=== PATIENT | female | born 1995 | race Caucasian/White ===

== ENCOUNTER 2018-05-31 17:06 | Inpatient (IN) ==
[~2018-05-31 17:06] MED LIST: Diphtheria/Tetanus/Pertussis Vaccine Inj 0.5 ML Syringe IM ONE; Measles/Mumps/Rubella Vaccine Inj 0.5 ML Vial SQ ONE
[2018-05-31] MEDS ORDERED: fentaNYL Citrate Inj 100 MCG/2 ML Ampul IV.PUSH PRN ×2 (17:52)
[2018-05-31] MEDS ORDERED: Sod Chloride 0.9% Inj 1,000 ML IV.CONT PRN (17:52)
[2018-05-31] MEDS ORDERED: Sodium Chlor 0.9% Inj 500 ML IV.SIG PRN (17:52)
[2018-05-31] MEDS ORDERED: Oxytocin 30 Units/500ml Premix 30 UNITS/500 ML BAG IV.SIG ONE (17:52)
[2018-05-31] MEDS ORDERED: Oxytocin 30 Units/500ml Premix 30 UNITS/500 ML BAG IV.SIG PRN (17:52)
[2018-05-31] MEDS ORDERED: Naloxone Inj 0.4 MG/ML Vial IV.PUSH PRN ×2 (17:52→21:56)
[2018-05-31] MEDS ORDERED: Citric Acid/Sodium Citrate Liq 30 ML UDC PO SCH (18:00)
[2018-05-31 18:04] LABS: Baso % (Auto) 0.1 % (0.0-2.0); Eos % (Auto) 0.3 % (0.0-4.0); Hematocrit 29.2 % (35.0-46.0); Hemoglobin 10.5 gm/dL (11.6-15.3); Lymph # (Auto) 1.8 th/mm3 (1.0-4.8); Lymph % (Auto) 19.3 % (9.0-44.0); Mean Corpuscular Hemoglobin 33.2 pg (27.0-34.0); Mean Corpuscular Volume 92.3 fL (80.0-100.0); Mean Platelet Volume 8.2 fL (7.0-11.0); Mono % (Auto) 10.5 % (0.0-8.0); Neut # (Auto) 6.4 th/mm3 (1.8-7.7); Neut % (Auto) 69.8 % (16.0-70.0); Platelet Count 209 th/mm3 (150-450); Red Blood Count 3.17 mil/mm3 (4.00-5.30); White Blood Count 9.1 th/mm3 (4.0-11.0)
[2018-05-31 18:08] LABS: Bilirubin,Urine Negative (Negative); Clarity,Urine Clear (Clear); Color,Urine Yellow (Yellw/Straw); Glucose,Urine (UA) 50 mg/dL (Negative); Leukocyte Esterase,Urine Negative (Negative); Mucus,Urine Few /lpf (Occasional); Nitrite,Urine Negative (Negative); Specific Gravity,Urine 1.027 (1.002-1.035); Squamous Epithelial Cell,Urine 1 /hpf (0-5); Urobilinogen,Urine 4 or Greater mg/dL (Less than 2)
[2018-05-31 18:23] LABS: Amphetamine Urine With Conf Neg (Neg); Benzodiazepine Urine With Conf Neg (Neg)
[2018-05-31 18:44] LABS: Platelet Estimate Normal (Normal); Platelet Morphology Normal (Normal)
[2018-05-31] MEDS ORDERED: fentaNYL 2MCG-Bupiv 0.125% Epi 150 ML EPIDURAL ONE (20:25)
[2018-05-31] MEDS ORDERED: Lidocaine PF 1% Inj 5 ML Vial ONE (20:52)
[2018-05-31] MEDS ORDERED: Bupivacaine PF 0.25% Inj 10 ML Vial ONE (20:52)
[2018-05-31] MEDS ORDERED: Vancomycin Inj 1,000 MG in Sodium Chlor 0.9% Inj 250 ML IV.SIG SCH (21:00)
[2018-05-31] MEDS ORDERED: Sodium Chloride 0.9% 2 ML Flush PRN IV.FLUSH (21:01)
[2018-05-31] MEDS ORDERED: fentaNYL Citrate Inj 100 MCG/2 ML Ampul EPIDURAL ONE (21:38)
[2018-05-31] MEDS ORDERED: fentaNYL 2MCG-Bupiv 0.125% Epi 150 ML EPIDURAL PRN (21:38)
[2018-05-31] MEDS ORDERED: Bisacodyl 10 MG Supp RECTAL PRN (21:56)
[2018-05-31] MEDS ORDERED: Zolpidem Tartrate 5 MG Tablet PO PRN (21:56)
[2018-05-31] MEDS ORDERED: Oxytocin 30 Units/500ml Premix 30 UNITS/500 ML BAG IV.CONT PRN (21:56)
[2018-05-31] MEDS ORDERED: Benzocaine 20% Top Spray 60 ML Can TOPICAL PRN (21:56)
[2018-05-31] MEDS ORDERED: Witch Hazel 50%/Glyderin 12.5% 40 Pad Jar RECTAL PRN (21:56)
--- NOTE | 2018-05-31 22:03 | P.OP ---
Surgeon: Jose Roberto Madrid MD Operation and Findings: Preoperative diagnosis: 1. Intrauterine at 38 weeks 0 days 2. growth restriction 3. Asthma 4. GBS positive Postop diagnosis 1. Same as above status post vaginal delivery Procedure 1. Term spontaneous vaginal delivery Surgeon Dr. Jose Roberto Madrid [employer]: [employer] labor and delivery staff Findings: 1. Viable male at 2149, Apgars 9 and 9, weight 2920g. Loose nuchal cord reduced after delivery 2. Intact placenta with three-vessel cord at 2152 3. Intact perineum vagina and cervix Anesthesia: Epidural Specimen: Placenta to disposal Estimated blood loss: 300 cc Fluid replacement: Lactated Ringer's and Pitocin Urine output: None recorded DVT prophylaxis: None required Antibiotics: Vancomycin for GBS prophylaxis Counts: correct x2 Time out done: yes Disposition: Stable to Indications: Patient is a 22-year-old 001 who presented as an induction of labor secondary to a new finding of growth restriction, her cervix was favorable, she was artificially ruptured, during her labor process a rapid GBS returned positive, vancomycin was ordered and started without adequate coverage , the patient progressed to complete with reassuring heart tones without further augmentation. I was called to the room when she was complete. Description of procedure: The patient began pushing after the bed was broken down, the head upon was allowed to restitute naturally for delivery with a supported perineum, with gentle downward guidance the anterior shoulder was delivered followed by gentle upper guidance for the posterior shoulder, the torso and lower extremities were delivered with ease and with continued perineal support. The had spontaneous cry and was placed on mom's abdomen for skin to skin contact, we allowed delayed cord clamping. After the cord was clamped and cut, cord blood was obtained. Pitocin was bolused and with fundal massage the placenta was delivered, there is minimal uterine bleeding and uterus was firm. The perineum, vagina and cervix were inspected and found to be intact. The patient tolerated the procedure well and was left in the birthing suite with her .
[2018-06-01] MEDS: Acetaminophen 325 MG Tablet PO PRN ×3 (05:49→22:36)
[2018-06-01] MEDS: Senna/Docusate Sodium 8.6/50 MG Tablet PO SCH (09:00)
--- NOTE | 2018-06-01 10:52 | P.PNOB ---
Subjective Post day: 1 Interval history: Patient doing well, vaginal bleeding less than menses, does have a headache that is worse when she sits up and resolves when she lays flat. Drank some coffee this morning without improvement. Objective Vital Signs/I&O: Vital Signs 05/31/18 17:59 05/31/18 20:30 05/31/18 20:58 Temperature 99.1 F 98.7 F Pulse Rate 86 80 Respiratory Rate 16 18 Blood Pressure 115/64 124/72 05/31/18 21:03 05/31/18 21:04 05/31/18 21:06 Temperature Pulse Rate 79 94 H Respiratory Rate 20 Blood Pressure 123/86 124/85 05/31/18 21:10 05/31/18 21:20 05/31/18 21:22 Temperature Pulse Rate 82 89 102 H Respiratory Rate 20 Blood Pressure 119/63 114/66 05/31/18 21:25 05/31/18 22:05 05/31/18 22:17 Temperature Pulse Rate 122 H Respiratory Rate Blood Pressure 88/58 L 111/59 L 125/72 05/31/18 22:20 05/31/18 22:31 05/31/18 22:40 Temperature 98.9 F Pulse Rate 82 Respiratory Rate 20 18 Blood Pressure 100/41 L 05/31/18 22:45 05/31/18 23:01 05/31/18 23:25 Temperature Pulse Rate 91 H Respiratory Rate 18 Blood Pressure 119/69 106/49 L 05/31/18 23:31 06/01/18 07:30 Temperature 97.9 F 98.0 F Pulse Rate 76 86 Respiratory Rate 18 20 Blood Pressure 113/60 100/63 Intake & Output 05/31/18 06/01/18 06/01/18 18:59 06:59 18:59 Weight 65.317 kg Other: Weight On Admission 65.317 kg Result Diagrams: 05/31/18 17:35 Objective Remarks: GENERAL: Well-nourished, well-developed patient. CARDIOVASCULAR: Regular rate and rhythm without murmurs, gallops, or rubs. RESPIRATORY: Breath sounds equal bilaterally. No accessory muscle use. ABDOMEN/GI: Abdomen soft, non-tender. Fundus: Firm, non-tender at umbilicus. GENITOURINARY: Light to moderate bleeding. EXTREMITIES: No cyanosis or edema, non-tender, without signs of DVT. Medications and IVs: Active Medications Acetaminophen (Tylenol) 650 mg PO Q4H PRN PRN Reason: PAIN SCALE 1 TO 2 Last Admin: 06/01/18 05:49 Dose: 650 mg Al Hydroxide/Mg Hydroxide (Milk Of Magnesia Liq) 30 ml PO Q12H PRN PRN Reason: Mild Constipation Benzocaine (Americaine 20% Top [place]) 1 spray TOPICAL Q4H PRN PRN Reason: For Perineum Discomfort Bisacodyl (Dulcolax Supp) 10 mg RECTAL DAILY PRN PRN Reason: SEVERE CONSITIPATION Oxytocin (Pitocin 30 Units/Ns 500 Ml Premix) 30 units in 500 mls @ 100 mls/hr IV.CONT UNSCH PRN PRN Reason: Heavy bleeding Ibuprofen (Motrin) 800 mg PO Q8H PRN PRN Reason: For Cramping Last Admin: 05/31/18 23:36 Dose: 800 mg Lactulose (Lactulose Liq) 30 ml PO DAILY PRN PRN Reason: SEVERE CONSITIPATION Naloxone HCl (Narcan Inj) 0.1 mg IV.PUSH Q2M PRN PRN Reason: for opiate reversal Ondansetron HCl (Zofran Odt) 4 mg PO Q6H PRN PRN Reason: NAUSEA OR VOMITING Senna/Docusate Sodium (Anayeli-Colace) 1 tab PO BID LENCHO Sennosides (Senokot) 17.2 mg PO Q12H PRN PRN Reason: Moderate Constipation Sodium Chloride (Ns Flush) 2 ml IV.FLUSH PRN PRN PRN Reason: FLUSH AFTER USING IV ACCESS Sodium Chloride (Ns Flush) 2 ml IV.FLUSH BID LENCHO Sodium Chloride (Ns Flush) 2 ml IV.FLUSH PRN PRN PRN Reason: FLUSH AFTER USING IV ACCESS Witch Anita/Glycerin (Tucks Pads) 1 applicatio RECTAL QID PRN PRN Reason: HEMORRHOIDS Zolpidem Tartrate (Ambien) 5 mg PO HS PRN PRN Reason: SLEEP Assessment and Plan - Plan 22-year-old status post at 38 weeks and 0 days, induction of labor for growth restriction. 1. day #1: Doing well, vital signs stable, anticipate discharge home in the next 24 hours, has symptoms consistent with a spinal headache, encouraged continued caffeine use and will bolus a liter of fluid, anesthesia is aware and may Place blood patch if no improvement. -Male , desires circumcision, did not pay, discussed that she will need to pay and can be done in the office at her follow-up. 2. Asthma: Controlled without medication.
[2018-06-01 20:30] VITALS: RESP 18
[2018-06-02] MEDS: Senna/Docusate Sodium 8.6/50 MG Tablet PO SCH ×2 (04:29→09:00)
[2018-06-02] MEDS: Acetaminophen 325 MG Tablet PO PRN ×3 (05:10→16:57)
[2018-06-02 09:03] VITALS: BP 106/62; PULSE 73; TEMP 98.3
--- NOTE | 2018-06-02 10:10 | P.PNOB ---
Subjective Post day: 2 Interval history: no changes from yesterday, ready for d/c home Objective Vital Signs/I&O: Vital Signs 06/01/18 20:00 06/02/18 08:00 Temperature 97.8 F 98.3 F Pulse Rate 84 73 Respiratory Rate 18 18 Blood Pressure 104/64 106/62 Result Diagrams: 05/31/18 17:35 Objective Remarks: GENERAL: Well-nourished, well-developed patient. CARDIOVASCULAR: Regular rate and rhythm without murmurs, gallops, or rubs. RESPIRATORY: Breath sounds equal bilaterally. No accessory muscle use. ABDOMEN/GI: Abdomen soft, non-tender. Fundus: Firm, non-tender at umbilicus. GENITOURINARY: Light to moderate bleeding. EXTREMITIES: No cyanosis or edema, non-tender, without signs of DVT. Medications and IVs: Active Medications Acetaminophen (Tylenol) 650 mg PO Q4H PRN PRN Reason: PAIN SCALE 1 TO 2 Last Admin: 06/02/18 09:26 Dose: 650 mg Al Hydroxide/Mg Hydroxide (Milk Of Magnesia Liq) 30 ml PO Q12H PRN PRN Reason: Mild Constipation Benzocaine (Americaine 20% Top [place]) 1 spray TOPICAL Q4H PRN PRN Reason: For Perineum Discomfort Bisacodyl (Dulcolax Supp) 10 mg RECTAL DAILY PRN PRN Reason: SEVERE CONSITIPATION Oxytocin (Pitocin 30 Units/Ns 500 Ml Premix) 30 units in 500 mls @ 100 mls/hr IV.CONT UNSCH PRN PRN Reason: Heavy bleeding Ibuprofen (Motrin) 800 mg PO Q8H PRN PRN Reason: For Cramping Last Admin: 06/02/18 09:25 Dose: 800 mg Lactulose (Lactulose Liq) 30 ml PO DAILY PRN PRN Reason: SEVERE CONSITIPATION Naloxone HCl (Narcan Inj) 0.1 mg IV.PUSH Q2M PRN PRN Reason: for opiate reversal Ondansetron HCl (Zofran Odt) 4 mg PO Q6H PRN PRN Reason: NAUSEA OR VOMITING Senna/Docusate Sodium (Anayeli-Colace) 1 tab PO BID LENCHO Last Admin: 06/02/18 04:29 Dose: Not Given Sennosides (Senokot) 17.2 mg PO Q12H PRN PRN Reason: Moderate Constipation Sodium Chloride (Ns Flush) 2 ml IV.FLUSH PRN PRN PRN Reason: FLUSH AFTER USING IV ACCESS Sodium Chloride (Ns Flush) 2 ml IV.FLUSH BID LENCHO Last Admin: 06/02/18 04:29 Dose: Not Given Sodium Chloride (Ns Flush) 2 ml IV.FLUSH PRN PRN PRN Reason: FLUSH AFTER USING IV ACCESS Witch Anita/Glycerin (Tucks Pads) 1 applicatio RECTAL QID PRN PRN Reason: HEMORRHOIDS Zolpidem Tartrate (Ambien) 5 mg PO HS PRN PRN Reason: SLEEP Assessment and Plan - Plan 22-year-old status post at 38 weeks and 0 days, induction of labor for growth restriction. 1. day #2: spinal headache almost gone with conservative measures, d /c home today. -Male , desires circumcision, did not pay, discussed that she will need to pay and can be done in the office at her follow-up. 2. Asthma: Controlled without medication.
--- NOTE | 2018-06-02 10:11 | P.DS ---
Date of admission: 05/31/18 17:06 Primary care physician: NOT REQUIRED Brief History from admission: 22-year-old who presented for induction of labor secondary to a new finding of growth restriction, she had a continuous vaginal delivery of a viable male infant and did well , she had a spinal headache that resolved with conservative measures. She was discharged on day #2. DS: Medications - Discharge Medications Prescriptions: ibuprofen 800 mg PO Q8H PRN #30 tab PRN Reason: For Cramping DS: Summary Hospital Course: See brief history - Time Spent with Patient Total time spent providing and/or coordinating discharge services: Less than 30 minutes Exam Vital signs: Vital Signs 06/01/18 20:00 06/02/18 08:00 Temperature 97.8 F 98.3 F Pulse Rate 84 73 Respiratory Rate 18 18 Blood Pressure 104/64 106/62 Results Procedures completed during hospitalization: Vaginal delivery Discharge Plan - Discharge Disposition Patient Disposition: 01 Discharge Home - Discharge Condition Condition: Good - Discharge Order Discharge Orders: Discharge Order (Routine); Ordered 06/02/18 Ordered By: Jose Roberto Madrid - Physicians Team Primary Care Provider: NOT REQUIRED, Attending Provider: Jose Roberto Madrid - Rxs /Orders / Referrals /Forms Prescriptions: New ibuprofen 800 mg Tablet 800 mg PO Q8H PRN (Reason: For Cramping) Qty: 30 RF: 1 No Action No Known Home Medications Referrals: NOT REQUIRED, [Primary Care Provider] - See Instructions - Discharge Instructions Patient Printed Instructions: Caring for Your Baby (DC), Bleeding ( DC), Vaginal Delivery (DC) Additional Instructions: please call to make your 2 week check up
== END 2018-06-02 17:30 | disposition home or self-care (01) ==
LOC: H2E 17:06 → H1EA 23:20
PROVIDERS: ADMIT Obstetrics & Gynecology; ATTEND Obstetrics & Gynecology